=== PATIENT | female | born 1955 | race Two or more races ===

== ENCOUNTER 2018-10-26 11:15 | Inpatient (IN) | payer OTHER ==
[~2018-10-26] VITALS: Ht 154.9 cm; Wt 72.6 kg
[2018-10-31] MEDS ORDERED: ATACAND4 MG PO (19:31)
[2018-10-31] MEDS ORDERED: LOVAZA1 GM PO (19:33)
[2018-10-31] MEDS ORDERED: VYTORIN 10-101 EACH PO (19:35)
[2018-10-31] MEDS ORDERED: DAFLONEX-XL TA1 EACH PO (19:36)
== END 2018-11-09 12:18 | disposition home or self-care (01) | DRG 331 ==
LOC: O/R 11-02 06:09 → RECOVERY 11-02 07:00 → SURG 11-02 17:58
PROVIDERS: ADMIT Colon & Rectal Surgery
PROC: 0DJD8ZZ Inspection of Lower Intestinal Tract, Via Natural or Artificial Opening Endoscopic (ICD-10-PCS; 2018-11-02)
PROC: 0DTN4ZZ Resection of Sigmoid Colon, Percutaneous Endoscopic Approach (ICD-10-PCS; principal; 2018-11-02 07:00)
DX: K57.32 Diverticulitis of large intestine without perforation or abscess without bleeding (principal); I11.9 Hypertensive heart disease without heart failure; E78.00 Pure hypercholesterolemia, unspecified; I87.2 Venous insufficiency (chronic) (peripheral); R73.01 Impaired fasting glucose; M17.0 Bilateral primary osteoarthritis of knee

== ENCOUNTER 2020-06-07 07:32 | Day surgery (SDC) | payer OTHER ==
[~2020-06-07 07:32] MED LIST: ATACAND4 MG PO; DAFLONEX-XL TA1 EACH PO; LOVAZA1 GM PO; VYTORIN 10-101 EACH PO
== END 2020-06-07 13:40 | disposition home or self-care (01) ==
LOC: AMB-ENDOS 07:32
PROVIDERS: ATTEND Colon & Rectal Surgery
DX: K57.32 Diverticulitis of large intestine without perforation or abscess without bleeding (principal); K64.1 Second degree hemorrhoids; Z20.828 Contact with and (suspected) exposure to other viral communicable diseases